=== PATIENT | male | born 1980 | race Two or more races ===

== ENCOUNTER 2019-01-29 12:46 | Emergency (ER) | payer MEDICAID ==
[~2019-01-29] VITALS: Ht 170.2 cm; Wt 95.3 kg
--- NOTE | 2019-01-29 13:13 | NUR ---
PATIENT ARRIVED AT UNIT AMBULATORY. A/O X 4. NO ACUTE DISTRESS. VERBALIZED HE TOOK 11 UNISOM SLEEPING PILLS TODAY AROUND 11:30 AM; REPORTS S/I, -HI. SITTER AT BEDSIDE. PATIENT CONNECTED TO MONITOR. INITIATED SUICIDAL IDEATION PROTOCOL. PATIENT CHANGED TO HOSPITAL GOWN, BELONGINGS PLACED ON SAFE. WILL CONTINUE TO MONITOR ACCORDINGLY
[2019-01-29 13:39] LABS: APPEARANCE,URINE Clear (CLEAR); BILIRUBIN,URINE Negative (NEGATIVE); BLOOD, URINE Negative Ery/uL (NEGATIVE); COLOR,URINE Yellow (YELLOW); KETONES,URINE 15 (NEGATIVE); LEUKOCYTE ESTERASE ,URINE Negative (NEGATIVE); NITRITE, URINE Negative (NEGATIVE); PROTEIN,URINE Negative (NEGATIVE); UGLUCOSE Negative (NEGATIVE); UROBILINOGEN,URINE 0.2 EU/dL (0.2)
[2019-01-29 13:41] LABS: BASOPHILS % (AUTO) 0.7 % (0.0-2.0); EOSINOPHILS % (AUTO) 0.3 % (0.0-6.0); HEMATOCRIT 46 % (39-51); HEMOGLOBIN 15.5 g/dL (13.5-17.5); LYMPHOCYTES # (AUTO) 1.1 /CMM (0.8-4.8); MEAN CORPUSCULAR HGB CONC 34 g/dl (31.0-36.0); MEAN CORPUSCULAR VOLUME 88 fL (80-96); MONOCYTES # (AUTO) 0.5 /CMM (0.1-1.30); MONOCYTES % (AUTO) 7.9 % (2.0-12.0); NEUTROPHILS % (AUTO) 75.1 % (43.0-81.0); PLATELET COUNT (AUTO) 203 /CMM (150-450); RED BLOOD CELL COUNT(AUTO) 5.28 MIL/uL (4.5-6.0); WHITE BLOOD COUNT (AUTO) 6.6 K/uL (4.3-11.0)
[2019-01-29 13:43] LABS: BACTERIA,URINE None seen /HPF (None Seen); RBC,URINE 0-2 /HPF (0-2); SQUAMOUS EPITHELIAL CELL,UR None Seen /HPF (None Seen); WBC,URINE 0-2 /HPF (0-3)
[2019-01-29 13:49] LABS: CALCIUM, SERUM 9.2 mg/dL (8.5-10.1); CARBON DIOXIDE 27 mmol/L (21-32); CHLORIDE 105 mmol/L (98-107); CREATININE 1.1 mg/dL (0.6-1.3); GLUCOSE 104 mg/dL (74-106); POTASSIUM 3.9 mmol/L (3.5-5.1); SODIUM SERUM 140 mmol/L (136-145); UREA NITROGEN, BLOOD 10 mg/dL (7-18)
[2019-01-29 13:55] LABS: ALANINE AMINOTRANSFERASE 57 U/L (12-78); ALBUMIN 4.3 g/dL (3.4-5.0); ALCOHOL, BLOOD < 3 mg/dL (0-0); ALKALINE PHOSPHATASE 65 U/L (46-116); ASPARTATE AMINOTRANSFERASE 32 U/L (15-37); BILIRUBIN,DIRECT 0.1 mg/dL (0.0-0.2); BILIRUBIN,TOTAL 0.6 mg/dL (0.2-1.0); TOTAL PROTEIN, SERUM 7.5 g/dL (6.4-8.2)
[2019-01-29 13:58] LABS: ACETAMINOPHEN 0 ug/ml (10-30); SALICYLATE 0.6 mg/dL (2.8-20.0)
--- NOTE | 2019-01-29 14:18 | NUR ---
SPOKE TO AT POISON CONTROL. 6-8 HOURS OBS EKG QRS >120, GIVE 1 TO 2 AMP SODIUM BICARB QTC > 500, GIVE 1-2 GM MAG OTIMIZE ELECTROLYTES BENZO FOR SEIZURE
--- NOTE | 2019-01-29 14:37 | NUR ---
Social service consult requested by Dr. Jordan for overdosing on sleeping pills. Pt. is a 38 year old male who came to the ED via [employer] after taking 11 UNISOM sleeping pills. SW met with the pt. bedside. Pt. is alert and oriented x 4. Pt. appears depressed and has a sad affect. Pt. is teary eyed. Pt. states he resides with is girlfriend Becka Bryan but they have been fighting a lot lately. Pt. stated, he recently was diagnosed with Herpes and now his girlfriend has it as well. Pt. states he is feeling hopeless and depressed and took the pills. Pt. sees his therapist Jenniffer Ford weekly. Pt. has had no previous suicidal attempts or psychiatric hospitalizations. Pt. has a history of cocaine addiction and was attending meetings at [facility] but stopped going to those as well. Pt. will be observed in the ED for 8 hours due to ingestion of sleeping pills (unisom), per poison control. Once medically cleared, pt. will require crisis team evaluation.
--- NOTE | 2019-01-29 15:17 | NUR ---
PT RESTING IN BED. EASILY AROUSABLE. ON MONITOR W/ STABLE VITALS. 1:1 SITTER BEDSIDE. WILL CONTINUE TO MONITOR.
--- NOTE | 2019-01-29 18:38 | NUR ---
CALLED ILAN CRAWFORD FOR PSYCH EVAL. ETA 1 HOUR.
--- NOTE | 2019-01-29 19:20 | NUR ---
YVETTE TALAVERA AT BEDSIDE FOR PSYCH EVAL.
--- NOTE | 2019-01-29 20:24 | NUR ---
Patient AOx4, calm and cooperative, ambulatory w/ steady gait, resp even & unlabored w/ no acute distress noted. Patient discharged to home in stable condition. Written and verbal after care instructions given. Patient verbalizes understanding of instruction.
[2019-01-29 20:26] VITALS: BP 140/88
== END 2019-01-29 20:27 | disposition home or self-care (01) ==
LOC: ER 12:49
DX: F32.9 Major depressive disorder, single episode, unspecified (principal); R45.851 Suicidal ideations
CPT/HCPCS: 36415; 80048; 80076; 80305; 80307; 80329; 81001; 85025; 93005; 99284; G0480; 81000-TC